=== PATIENT | female | born 1975 | race Caucasian/White ===

== ENCOUNTER 2019-08-18 10:24 | Outpatient (CLI) | payer OTHER, SELFPAY ==
--- NOTE | ~2019-08-18 | MM_ITS ---
EXAMINATION: MM scrn mansoor implant BI w camila HISTORY: Screening mammogram TECHNIQUE: Craniocaudal and mediolateral oblique 3-D tomosynthesis images with implant displacement a nd synthetic 2-D images were generated. Craniocaudal and mediolateral oblique views of the breasts wi thout implant displacement were obtained using full field digital mammography. CAD analysis was submi tted and interpreted. COMPARISON: No prior mammogram is available for comparison at this institution. BREAST PARENCHYMAL COMPOSITION: The breasts are heterogeneously dense, which may obscure small masses . FINDINGS: There are bilateral subpectoral saline implants. There is no evidence of suspicious mass, c alcification, or architectural distortion to suggest malignancy in either breast. There has been no s uspicious interval change. IMPRESSION: 1. No mammographic evidence of malignancy. 2. Recommend routine screening mammography in one year. BI-RADS Category 1: Negative Reviewed, dictated and finalized at location A. MANAGER
== END 2019-08-18 10:25 | disposition home or self-care (01) ==
LOC: ANHIMG 10:27
PROVIDERS: Visit Provider Obstetrics & Gynecology
DX: Z12.31 Encounter for screening mammogram for malignant neoplasm of breast (principal)
CPT/HCPCS: 77063; 77067

== ENCOUNTER 2021-10-21 15:03 | Outpatient (CLI) | payer BC, SELFPAY ==
[2021-10-21 19:19] LABS: Basophils Percent Auto 0.6 % (0.2-1.2); Eosinophils Absolute Auto 0.1 K/mm3 (0-0.3); Eosinophils Percent Auto 1.3 % (0-4.4); Hematocrit 41.5 % (37.0-47.0); Hemoglobin 14.1 g/dL (12.0-15.0); Immature Granulocyte Absolute 0.01 K/mm3 (0.00-0.031); Immature Granulocyte Percent A 0.2 % (0-0.5); Lymphocytes Absolute Auto 1.52 K/mm3 (0.9-3.2); Lymphocytes Percent Auto 28.1 % (18.3-44.2); Mean Corpuscular Hemoglobin 30.9 pg (26-34); Mean Corpuscular Volume 90.8 fl (80-100); Monocytes Absolute Auto 0.3 K/mm3 (0.1-0.6); Monocytes Percent Auto 6.3 % (2.6-8.5); Neutrophils Absolute Auto 3.4 K/mm3 (1.3-6.7); Neutrophils Percent Auto 63.5 % (45.5-73.1); Platelet Count Result 135 k/mm3 (150-375); Red Blood Count 4.57 M/mm3 (4.2-5.4); Red Cell Distribution Width 12.1 % (11.5-14.5); White Blood Count 5.4 K/mm3 (4.5-10.0)
[2021-10-21 19:31] LABS: Alanine Aminotransferase 9 U/L (4-35); Albumin Level 4.9 g/dL (3.5-5.1); Alkaline Phosphatase 47 U/L (38-126); Anion Gap 11 mmol/L (8-16); Aspartate Amino Transferase 20 U/L (14-36); Bilirubin,Total 0.7 mg/dL (0.2-1.3); Blood Urea Nitrogen 14 mg/dL (7-17); Calcium 9.2 mg/dL (8.4-10.2); Carbon Dioxide 20 mmol/L (22-30); Chloride 106 mmol/L (98-107); Cholesterol 208 mg/dL (0-200); Estimated Glomerular Filt Rate > 60; Glucose 97 mg/dL (65-110); HDL Direct 74 mg/dL; Potassium 4.3 mmol/L (3.4-5.0); Sodium 137 mmol/L (137-145); Triglycerides 72 mg/dL (<150)
[2021-10-21 19:42] LABS: LDL Cholesterol Direct 96 mg/dL
[2021-10-21 19:48] LABS: Vitamin D 25 Hydroxy 49.4 ng/mL
== END 2021-10-21 15:04 | disposition home or self-care (01) ==
PROVIDERS: Visit Provider Obstetrics & Gynecology
DX: Z00.00 Encounter for general adult medical examination without abnormal findings (principal)
CPT/HCPCS: 36415; 80053; 80061; 82306; 84443; 85025

== ENCOUNTER 2021-12-17 10:13 | Outpatient (CLI) | payer BC, SELFPAY ==
--- NOTE | ~2021-12-17 | MM_ITS ---
EXAMINATION: MM scrn mansoor implant BI w camila HISTORY: Screening mammogram TECHNIQUE: Craniocaudal and mediolateral oblique 3-D tomosynthesis images with implant displacement a nd synthetic 2-D images were generated. Craniocaudal and mediolateral oblique views of the breasts wi thout implant displacement were obtained using full field digital mammography. CAD analysis was submi tted and interpreted. COMPARISON: 08/18/2019 BREAST PARENCHYMAL COMPOSITION: The breasts are extremely dense, which lowers the sensitivity of mamm ography FINDINGS: There are subpectoral breast implants. There is no evidence of suspicious mass, calcificati on, or architectural distortion to suggest malignancy in either breast. There has been no suspicious interval change. IMPRESSION: 1. No mammographic evidence of malignancy. 2. Recommend routine screening mammography in one year. BI-RADS Category 1: Negative Reviewed, dictated and finalized at location A.
== END 2021-12-17 10:14 | disposition home or self-care (01) ==
LOC: ANHIMG 10:15
PROVIDERS: PCP Family Medicine; Visit Provider Obstetrics & Gynecology
DX: Z12.31 Encounter for screening mammogram for malignant neoplasm of breast (principal)
CPT/HCPCS: 77063; 77067

== ENCOUNTER 2022-12-19 00:10 | Day surgery (SDC) | payer BC, SELFPAY ==
[2022-12-09 13:15] VITALS: BMI 20.9
[2022-12-19 06:21] VITALS: BP 105/59; PULSE 93; RESP 18; TEMP 36.7; O2SAT 100; BMI 20.6
[2022-12-19] MEDS: LACTATED RINGERS 1,000 ML 150 ML IV CONT (06:31)
--- NOTE | 2022-12-19 07:23 | P.HP_ITS ---
History of Present Illness History of Present Illness Consent: Risks, benefits, and alternatives have been discussed and questions answered. Patient agrees to proceed with procedure. Chief complaint: neoplasm screening Narrative: Venita Campo is a 47 year old female Presents for screening colonoscopy. Patient's current weight appetite bowel movements are normal. Patient denies abdominal pain. She has had no bleeding. Family history is noncontributory. [facility] Surgical History Surgical History History of colposcopy Hx of breast augmentation Family History Family History Grandparent Hypertension Sibling Hypertension Patient's brother is in good health Father Family history of heart disease in male family member before age 55 Social History Social History Smoking status: Never smoker Alcohol intake: current Drinks per week: 5 Alcohol use details: DRINKS/BEERS Substance use: never Substance use type: marijuana Other substance usage details: GUMMIES AT NIGHT FOR SLEEP Lack of Transportation: No Lack of Food: Never True Current Housing: I Have Housing Concerned About Future Housing: No Difficulty Paying Gas/Electric Bills: No Difficulty Paying for Meds: No Currently Unemployed: No Education: Master's Degree or Higher Difficulty w/ Childcare or Family Care: No Living arrangements: with family Occupation/Education: retired Spiritual care concerns: No Meds Home Medications and Allergies Home Medications Medication Instructions Recorded Confirmed Type No Home Medications 12/19/22 12/19/22 History Allergies Allergy/AdvReac Type Severity Reaction Status Date / Time Sulfa (Sulfonamide Allergy Severe Hives Verified 12/19/22 06:20 Antibiotics) Vital Signs Vital Signs - 24 hr 12/19/22 06:21 Temperature 98.1 F Pulse Rate 93 Respiratory Rate 18 Blood Pressure 105/59 L Pulse Oximetry 100 Oxygen Delivery Room Air Exam Narrative: Physical exam reveals patient to be alert. Vital signs stable. HEENT exam is unremarkable. Patient is anicteric. Lungs are clear. Heart without murmur. Abdomen bowel sounds are present soft nontender with no organomegaly. Digital external rectal exam is normal. Assessment and Plan Assessment and plan (1) Encounter for screening colonoscopy: Code(s): Z12.11 - Encounter for screening for malignant neoplasm of colon Status: Acute Assessment and Plan: Patient presents today for screening colonoscopy. She appears to be at average risk for colon polyps. Further recommendations may be given after endoscopy.
--- NOTE | 2022-12-19 07:28 | P.PNAN_ITS ---
Anes - Initial Pre Proc Eval Procedure: Operation Date: 12/19/22 07:30 Proposed Procedures p Screening Colonoscopy - Denny Walter MD Date/Time: 12/19/22 07:28 Surgeon: Denny Walter MD Pre Op Diagnosis: neoplasm screening Patient Data Age: 47 Gender: F Height: 1.65 m Weight: 56.2 kg Last Vital Signs Temp 98.1 F 12/19/22 06:21 Pulse 93 12/19/22 06:21 Resp 18 12/19/22 06:21 BP 105/59 L 12/19/22 06:21 Pulse Ox 100 12/19/22 06:21 O2 Del Method Room Air 12/19/22 06:21 Allergies Allergy/AdvReac Type Severity Reaction Status Date / Time Sulfa (Sulfonamide Allergy Severe Hives Verified 12/19/22 06:20 Antibiotics) Home Medications Medication Instructions Recorded Confirmed Type No Home Medications 12/19/22 12/19/22 History Patient hx anesthesia problems: none Family hx anesthesia problems: none Results Review: All pre-operative results and documents have been reviewed as part of the pre-operative evaluation. [facility] Surgical History Surgical History History of colposcopy Hx of breast augmentation Family History Family History Grandparent Hypertension Sibling Hypertension Patient's brother is in good health Father Family history of heart disease in male family member before age 55 Social History Social History Smoking status: Never smoker Alcohol intake: current Drinks per week: 5 Alcohol use details: DRINKS/BEERS Substance use: never Substance use type: marijuana Other substance usage details: GUMMIES AT NIGHT FOR SLEEP Lack of Transportation: No Lack of Food: Never True Current Housing: I Have Housing Concerned About Future Housing: No Difficulty Paying Gas/Electric Bills: No Difficulty Paying for Meds: No Currently Unemployed: No Education: Master's Degree or Higher Difficulty w/ Childcare or Family Care: No Living arrangements: with family Occupation/Education: retired Spiritual care concerns: No Anes - Eval Final PreProcedure Day of Procedure 12/19/22 07:28 Patient weight: normal Heart: regular rate and rhythm Lungs: clear to auscultation Airway: Mallampati scale class II Neurological: alert and oriented Last oral intake: >/= 8 hours ASA classification: II Emergent: no Anesthetic plan: proceed Anesthesia type and monitoring: general GIVS and standard monitoring Results Review: All pre-operative results and documents have been reviewed as part of the pre- operative evaluation. Informed Consent: The patient's anesthetic plan and its attendant risks and benefits were discussed with the patient/family/POA. Questions were solicited and answers provided to the satisfaction of the patient/family/POA.
[2022-12-19 07:48] VITALS: BP 119/98; PULSE 73; RESP 22; O2SAT 100
[2022-12-19 07:58] VITALS: BP 105/69; PULSE 66; RESP 18; O2SAT 100
[2022-12-19 08:08] VITALS: BP 103/68; PULSE 60; RESP 16; O2SAT 100
== END 2022-12-19 08:09 | disposition home or self-care (01) ==
PROVIDERS: PCP Family Medicine; Visit Provider Internal Medicine Gastroenterology
PROC: 0DJD8ZZ Inspection of Lower Intestinal Tract, Via Natural or Artificial Opening Endoscopic (ICD-10-PCS; CPT 45378; principal; 2022-12-19 07:30)
DX: Z12.11 Encounter for screening for malignant neoplasm of colon (principal); K64.8 Other hemorrhoids; F12.90 Cannabis use, unspecified, uncomplicated
CPT/HCPCS: 45378; J7120

== ENCOUNTER 2023-01-07 10:09 | Outpatient (CLI) | payer BC, SELFPAY ==
--- NOTE | ~2023-01-07 | MM_ITS ---
EXAMINATION: MM scrn mansoor implant BI w camila HISTORY: Screening mammogram TECHNIQUE: Craniocaudal and mediolateral oblique 3-D tomosynthesis images with implant displacement a nd synthetic 2-D images were generated. Craniocaudal and mediolateral oblique views of the breasts wi thout implant displacement were obtained using full field digital mammography. CAD analysis was submi tted and interpreted. COMPARISON: 12/17/2021 BREAST PARENCHYMAL COMPOSITION: The breasts are extremely dense, which lowers the sensitivity of mamm ography. FINDINGS: There is no evidence of suspicious mass, calcification, or architectural distortion to sugg est malignancy in either breast. There has been no suspicious interval change. IMPRESSION: 1. No mammographic evidence of malignancy. 2. Recommend routine screening mammography in one year. BI-RADS Category 1: Negative Reviewed, dictated and finalized at location A.
== END 2023-01-07 10:10 | disposition home or self-care (01) ==
LOC: ANHIMG 10:10
PROVIDERS: PCP Family Medicine; Visit Provider Obstetrics & Gynecology
DX: Z12.31 Encounter for screening mammogram for malignant neoplasm of breast (principal)
CPT/HCPCS: 77063; 77067

== ENCOUNTER 2024-01-07 08:15 | Outpatient (CLI) | payer BC, SELFPAY ==
--- NOTE | ~2024-01-07 | US_ITS ---
EXAMINATION: US pelvic complete w TV INDICATION: Right adnexal fullness. Abnormal uterine bleeding. Comparison:No prior studies for comparison. TECHNIQUE: Multiple transabdominal and endovaginal sonographic images of the pelvis performed. FINDINGS: The uterus measures 8.9 x 5.5 x 4.9 cm. The endometrial complex measures 6 mm. The right ovary measures 2.3 x 1.8 x2.1 cm and the left ovary measures . There are small follicles i n each ovary. Normal doppler signal in both ovaries. There is no free fluid in the pelvis. There are no abnormal masses seen on either side. IMPRESSION: 1. Unremarkable pelvic ultrasound. Reviewed, dictated and finalized at location B.
== END 2024-01-07 08:16 ==
PROVIDERS: PCP Family Medicine; Visit Provider Obstetrics & Gynecology
DX: N94.9 Unspecified condition associated with female genital organs and menstrual cycle (principal)
CPT/HCPCS: 76830; 76856

== ENCOUNTER 2024-02-12 10:29 | Outpatient (CLI) | payer BC, SELFPAY ==
--- NOTE | ~2024-02-12 | MM_ITS ---
EXAMINATION: MM scrn mansoor implant BI w camila HISTORY: Screening mammogram TECHNIQUE: Craniocaudal and mediolateral oblique 3-D tomosynthesis images with implant displacement a nd synthetic 2-D images were generated. Craniocaudal and mediolateral oblique views of the breasts wi thout implant displacement were obtained using full field digital mammography. CAD analysis was submi tted and interpreted. COMPARISON: Comparison to multiple prior studies sequentially, with oldest reviewed study dated 12/17. BREAST PARENCHYMAL COMPOSITION: The breasts are extremely dense, which lowers the sensitivity of mamm ography. FINDINGS: There is no evidence of suspicious mass, calcification, or architectural distortion to sugg est malignancy in either breast. There has been no suspicious interval change. IMPRESSION: 1. No mammographic evidence of malignancy. 2. Recommend routine screening mammography in one year. BI-RADS Category 1: Negative Reviewed, dictated and finalized at location B.
== END 2024-02-12 10:30 | disposition home or self-care (01) ==
PROVIDERS: PCP Family Medicine; Visit Provider Obstetrics & Gynecology
DX: Z12.31 Encounter for screening mammogram for malignant neoplasm of breast (principal)
CPT/HCPCS: 77063; 77067

== ENCOUNTER 2024-02-17 00:12 | Day surgery (SDC) | payer BC, SELFPAY ==
[2024-02-09 15:36] VITALS: BMI 21.6
--- NOTE | 2024-02-09 16:08 | PC.NURSE ---
Report to the Outpatient Waiting Room, entrance under the green pavilion located off [facility], at 0830 on 02-17-24. Planned Procedure Time: 1030. Time changes happen often and if your time is changed the preop area will call you the afternoon before. - You and your visitor will be asked to self-screen and do not enter if you have any COVID symptoms. - A mask is optional within the hospital at this time. Patients may have clear liquids (water, carbonated beverages, clear teas, apple juice) until 3 hours prior to surgery with a maximum of 20 ounces. 0730 - No food from midnight until time of surgery - Infants may have breast milk until 4 hours before surgery, formula 6 hours prior to surgery. - Children will be allowed to drink immediately following surgery. If applicable, please bring a bottle or sippy cup to assist with drinking. Juice, water, soda, and popsicles are readily available. For infants on formula, please bring formula the day of surgery. Pacifiers are allowed. Take the following medications with a SIP of water the morning of surgery: None DO NOT STOP ANY OF YOUR OTHER PRESCRIPTION MEDICATIONS PRIOR TO SURGERY EXCEPT THE FOLLOWING Medications to discontinue per physician: N/A Please no make-up, nail honduran, hairspray, perfume, deodorant, or body powder the day of surgery. No jewelry (including any body piercings) or valuables the day of surgery, leave them at home. Please take a shower or bath the night before, or the morning of, surgery with an antibacterial soap. Wear comfortable, loose fitting clothing. Children are encouraged to wear pajamas. - Jewelry must be removed prior to entering the operating room. Rings and piercings that are not removed may be cut off. - The hospital will not accept responsibility for valuables. - Please leave all valuables, including medications, at home the day of surgery. If you are going home after surgery, a licensed escort vehicle driver must drive you home. - NO public transportation without another adult if you receive anesthesia. - We recommend that an adult stay with you for 24 hours following discharge. - We also recommend that you do not drive, make important decision, drink alcoholic beverages, or take any drugs that were not prescribed by your health care provider for at least 24 hours after your discharge time. For Pediatric surgeries, we recommend two adults accompany the child home. Follow any additional instructions given to you from your surgeon. If you or anyone in your household have experienced Covid symptoms in the past week, please notify your surgeon or the nurse liaison at the phone number below for possible testing. Telephone instructions given to Luiza Campo and asked if any additional questions and then verbalized understanding. Patient advised to call surgeon office or pre surgery nurse liaison [phone] if any additional questions.
--- NOTE | 2024-02-17 07:28 | PM.IMHP ---
H&P: HPI History of Present Illness Date/Time: 02/17/24 07:28 Chief Complaint: Excessive bleeding Narrative: Patient with a history of prolonged periods not satisfactorily relieved with hormonal options. Declined IUD. She opted for endometrial ablation. She had an endometrial biopsy which showed polyp and prog effect. Review of Systems Review of Systems: All systems reviewed & are unremarkable except as noted in HPI and below Cardiovascular: Cardiovascular: Reports no additional cardiovascular complaints, Denies chest pain and Denies dyspnea Respiratory: Respiratory: Reports no additional respiratory complaints and Denies dyspnea Gastrointestinal: Gastrointestinal: Reports abdominal pain, Denies change in bowel habits, Denies diarrhea, Denies nausea and Denies vomiting Genitourinary: Genitourinary: Reports pelvic pain Musculoskeletal: Musculoskeletal: Reports back pain Integumentary/Breasts: Skin/Breast: Reports system reviewed and no additional complaints, except as docu Neurologic: Reports system reviewed and no additional complaints, except as documented [facility] Surgical History Surgical History History of colposcopy Hx of breast augmentation Family History Family History Grandparent Hypertension Sibling Hypertension Patient's brother is in good health Father Family history of heart disease in male family member before age 55 Social History Social History Smoking status: Never smoker Second hand tobacco smoke exposure: No Alcohol intake: current Drinks per week: 5 Alcohol use details: socially Substance use: current Substance use type: marijuana Other substance usage details: edibles (gummies to help sleep sometimes) Lack of Transportation: No Lack of Food: Never True Current Housing: I Have Housing Concerned About Future Housing: No Difficulty Paying Gas/Electric Bills: No Difficulty Paying for Meds: No Currently Unemployed: No Education: Master's Degree or Higher Difficulty w/ Childcare or Family Care: No Living arrangements: with family Occupation/Education: retired Gender identity (if verbalized by the patient): Female Spiritual care concerns: No Meds Home Medications and Allergies Home Medications Medication Instructions Recorded Confirmed Type No Home Medications 02/09/24 02/09/24 History Allergies Allergy/AdvReac Type Severity Reaction Status Date / Time Sulfa (Sulfonamide Allergy Severe Hives Verified 02/09/24 15:31 Antibiotics) Exam Const: Orientation/consciousness: oriented to person and oriented to place HENMT: Head: normal to inspection Eyes: General: appearance normal, both eyes and all related structures Resp: Effort & Inspection: normal respiratory effort Auscultation: clear to auscultation bilaterally Cardio: Rate: regular rate Rhythm: regular rhythm GI: Inspection: normal to inspection GI Palp: No Rebound tenderness present Neuro: General: oriented to person and oriented to place Cognition (Neuro): normal cognition Extrem: General: normal to inspection Psych: Appearance: grossly normal and well kempt Assessment and Plan Assessment and plan (1) Prolonged periods: Code(s): N92.6 - Irregular menstruation, unspecified Status: Acute Assessment and Plan: She has opted for endometrial ablation. Will perform hysteroscopy and possible dilation and curettage and possible removal of lesion if present. (2) Endometrial polyp: Code(s): N84.0 - Polyp of corpus uteri Status: Acute Assessment and Plan: Plan per above.
[2024-02-17] MEDS: LACTATED RINGERS 1,000 ML 30 ML IV CONT (09:00)
--- NOTE | 2024-02-17 09:29 | P.PNAN_ITS ---
Anes - Initial Pre Proc Eval Procedure: Operation Date: 02/17/24 10:30 Proposed Procedures p Hysteroscopy, Dilatation and Curettage, Lisseth Endometrial Ablation - Bernabe Skelton MD Date/Time: 02/17/24 09:29 Surgeon: Bernabe Skelton MD Pre Op Diagnosis: irreg bleeding, contraception Patient Data Age: 48 Gender: F Height: 1.65 m Weight: 58.97 kg Allergies Allergy/AdvReac Type Severity Reaction Status Date / Time Sulfa (Sulfonamide Allergy Severe Hives Verified 02/09/24 15:31 Antibiotics) Home Medications Medication Instructions Recorded Confirmed Type No Home Medications 02/09/24 02/09/24 History Laboratory Tests 02/17/24 09:15 Plt Count Pending MPV Pending Patient hx anesthesia problems: none Family hx anesthesia problems: none Results Review: All pre-operative results and documents have been reviewed as part of the pre- operative evaluation. [facility] Surgical History Surgical History History of colposcopy Hx of breast augmentation Family History Family History Grandparent Hypertension Sibling Hypertension Patient's brother is in good health Father Family history of heart disease in male family member before age 55 Social History Social History Smoking status: Never smoker Second hand tobacco smoke exposure: No Alcohol intake: current Drinks per week: 5 Alcohol use details: socially Substance use: current Substance use type: marijuana Other substance usage details: edibles (gummies to help sleep sometimes) Lack of Transportation: No Lack of Food: Never True Current Housing: I Have Housing Concerned About Future Housing: No Difficulty Paying Gas/Electric Bills: No Difficulty Paying for Meds: No Currently Unemployed: No Education: Master's Degree or Higher Difficulty w/ Childcare or Family Care: No Living arrangements: with family Occupation/Education: retired Gender identity (if verbalized by the patient): Female Spiritual care concerns: No Anes - Eval Final PreProcedure Day of Procedure 02/17/24 09:29 Patient weight: normal Heart: regular rate and rhythm Lungs: clear to auscultation Airway: Mallampati scale class II Neurological: alert and oriented Last oral intake: >/= 8 hours ASA classification: I Emergent: no Anesthetic plan: proceed Anesthesia type and monitoring: general GIVS and standard monitoring Results Review: All pre-operative results and documents have been reviewed as part of the pre- operative evaluation. Pt very active w cardio exercise, no cp or sob. She states that she has chronically low plts (but only slightly low per pt). Plts 135 K today. Informed Consent: The patient's anesthetic plan and its attendant risks and benefits were discussed with the patient/family/POA. Questions were solicited and answers provided to the satisfaction of the patient/family/POA.
--- NOTE | 2024-02-17 09:31 | WPDHPUPDATE1 ---
History and Physical Update Update Date/Time: 02/17/24 09:31 History and Physical has been reviewed, including an updated exam of the patient. There are NO changes in the patient's condition. Risks, benefits, and alternatives have been discussed and questions answered. Patient agrees to proceed with procedure.
[2024-02-17 09:32] LABS: Mean Platelet Volume 11.2 fl (7.4-10.4); Platelet Count Result 135 k/mm3 (150-375)
[2024-02-17] MEDS: ACETAMINOPHEN 500 MG TABLET 1000 MG PO (10:01)
[2024-02-17 10:03] VITALS: BP 112/76; PULSE 80; RESP 20; TEMP 36.6; O2SAT 100
[2024-02-17] MEDS: ceFAZolin 2 GM/D5W 50 ML 2 GM/50 ML BAG IVPB (10:06)
[2024-02-17] MEDS: LIDOCAINE HCL 1% LOCAL INJ 20 ML VIAL 10 ML INFILTRATE (10:28)
[2024-02-17] MEDS: KETOROLAC 15 MG/ML VIAL (*BKC) IV PUSH (10:32)
[2024-02-17 10:42] VITALS: BP 107/70; PULSE 69; RESP 14; O2SAT 100
--- NOTE | 2024-02-17 10:47 | W.PM.PROC2 ---
Procedure Note - Detailed Date of Procedure 02/17/24 Pre-op Diagnosis prolonged irreg bleeding Post-op Diagnosis Same Procedure Performed Hysteroscopy with dilation and curettage and lisseth endometrial ablation Surgeon Bernabe Skelton MD Anesthesia MAC and Local Indications Prolonged menstrual bleeding, possible polyp Findings Uterus Sound to 9 cm cervical length 4.5 cm on hysteroscopy there were was proliferative endometrium no polyp seen. The tot performed. And then ablation performed. Description of Procedure After informed consent was obtained patient was taken to the operating room and adequate IV sedation was administered. Attention was turned to the vagina. Speculum was inserted. Single-tooth tenaculum placed on the anterior lip of the cervix. The uterus was sounded to 9 cm. The cervix was dilated to an 4 Alfaro dilator. The cervical length was 4.5. The hysteroscope was inserted into the cavity. The findings were a normal uterine cavity with proliferative endometrial tissue. The hysteroscope was removed. The Lisseth ablation instrument was inserted into the cavity. Cavity assessment was performed and confirmed intact. The ablation was enabled. After 120 seconds the Lisseth stopped. The ablation instrument was removed. The hysteroscope was inserted and there was noted to be good eschar with the cavity. The hysteroscope was removed the single-tooth tenaculum was removed hemostasis was noted at the tenaculum site with silver nitrate. Sponge count correct. The patient taken to recovery in stable condition. Estimated Blood Loss 5 Drains No Packing No Pathology Yes ( Endometrial curetting) Complications No immediate complications Condition Stable Disposition Same day [facility] Billing Surgery - Charge Forward: Surgery Billing
[2024-02-17 11:10] VITALS: BP 111/64; PULSE 62; RESP 16
[2024-02-17 11:29] VITALS: BP 113/81; PULSE 50; RESP 16
[2024-02-17 11:37] LABS: BEDSIDEPREGUCG Negative
== END 2024-02-17 11:40 | disposition home or self-care (01) ==
PROVIDERS: PCP Family Medicine; Visit Provider Obstetrics & Gynecology
PROC: 0U5B8ZZ Destruction of Endometrium, Via Natural or Artificial Opening Endoscopic (ICD-10-PCS; CPT 58563; principal; 2024-02-17 10:30)
DX: N92.6 Irregular menstruation, unspecified (principal); F12.90 Cannabis use, unspecified, uncomplicated
CPT/HCPCS: 58563; 36415; 85049; 85055; 88305; A9270; J0690; J1885; J2250; J2704; J3010; J7120

== ENCOUNTER 2025-03-23 09:52 | Outpatient (CLI) | payer BC, SELFPAY ==
--- OUTSIDE RECORDS SUMMARY | 2025-03-23 10:24 | XMS_ITS | Encounter Summary ---
Author Organization [facility] Address [address] [place] [address] Care Team Providers Care Bulb Planter Name Role Phone Unavailable Primary Care Provider Unavailabl e Encounter Details Date Type Department Care Team (Late st Contact Info) Description 04/11/2024 Lab Requisition [facility] - DermPath Lab [address] [facility], [place] [address] Adrienne Arreola DO [address] [facility] 3L [place] [address] Social History Tobacco Use Types Packs/Day Years Used Date Smoking Tobacco: Never Assessed Comments Unknown Sex and Gender Information Value Date Recorded Sex Assigned at Not on file Legal Sex Female 7:04 AM CDT Gender Identity Not on file Sexual Orientation Not on file documented as of this encounter Plan of Treatment Not on file documented as of this encounter Procedures Procedure Name Priority Date/Time Associated Diagnosis Comments DERMATOPATHOLOGY Routine 04/11/2024 10:0 5 AM CDT documented in this encounter Results * DERMATOPATHOLOGY (04/11/2024 10:05 AM CDT) Case Report Dermatopathology Report Case: [id number] Authorizing Provider: Adrienne Arreola DO Collected: 04/11/2024 10:05 AM Ordering Location: [facility] - Received: 04/11/2024 04:25 PM DermPath Lab Pathologist: Traci Gaitan MD Specimens: A) - Skin, right lateral forehead B) - Skin, right post auricular 12:39 PM CDT DERMATOPATHOLOGY LABORATORY Final Diagnosis Specimen A. 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 R/O atypia 12:39 PM CDT DERMATOPATHOLOGY LABORATORY Gross Description Specimen A: Received is one formalin filled container labeled with the patient's name and designated right lateral forehead. The specimen consists of a shave biopsy measuring 5x4x1 mm. Jar 0. Specimen B: Received is one formalin filled container labeled with the patient's name and designated right post auricular. The specimen consists of a shave biopsy measuring 2x2x1 mm. Jar 0. 12:39 PM CDT DERMATOPATHOLOGY LABORATORY Microscopic Description Specimen A. SKIN, right lateral forehead: In the dermis, there are dilated vascular spaces surrounded by widely spaced endothelial cells. Specimen B. SKIN, right post auricular: Sections show nests, cords, and strands of cytologically bland melanocytes that mature with descent into the dermis. There are areas in which the melanocytes have a neuroid appearance. 12:39 PM CDT DERMATOPATHOLOGY LABORATORY Disclaimer An external and internal positive and negative controls are appropriate for the histochemical, immunohistochemical and immunofluorescence stain(s) in this case (if any), except where stated explicitly. The performance characteristics of the stain(s) cited in this report were developed and its performance characteristic determined by the Dermatopathology Laboratory at [facility], directed by Dr. Melba Luu. These tests need not be, and therefore are not, approved by the [place] Food and Drug Administration. The tests are used for clinical purposes. Billing Codes Specimen Charges Stain Charges 97869 02182 1 1 12:39 PM CDT DERMATOPATHOLOGY LABORATORY Embedded Images 12:39 PM CDT DERMATOPATHOLOGY LABORATORY Pathology/Cytology TISSUE SPECIMEN FROM SKIN / Unknown 04/11/2024 10:05 AM CDT 04/11/2024 4:25 PM CDT Miscellaneous samples (specimen) TISSUE SPECIMEN FROM SKIN / Unknown 04/11/2024 10:05 AM CDT 04/11/2024 4:25 PM CDT us Adrienne Arreola DO LAB - PATHOLOGY/CYTOLOGY ORDERABLES Final Result DERMATOPATHOLOGY LABORATORY [facility] - Department of Dermatology [facility] Medicine [address] [place] [address], [address] [phone] documented in this encounter Visit Diagnoses Not on filedocumented in this encounter
--- OUTSIDE RECORDS SUMMARY | 2025-03-23 10:24 | XMS_ITS | Clinical Summary ---
Author Organization [facility] Address [address] [place] [address] Care Team Providers Care General Manager [employer] Name Role Phone Unavailable Primary Care Provider Unavailabl e Source Comments [facility],non-owned Affiliates and Associated Physician Practices is amultiple site organization consisting of ambulatory clinics and hospital sitesin [place], [place], [place] and [place]. This disclosure is being madepursuant to the Care Everywhere program and may not contain all information available regarding this patient. Last updated 18[facility] Social History Tobacco Use Types Packs/Day Years Used Date Smoking Tobacco: Never Assessed Comments Unknown Sex and Gender Information Value Date Recorded Sex Assigned at Not on file Legal Sex Female 7:04 AM CDT Gender Identity Not on file Sexual Orientation Not on file Plan of Treatment Health Maintenance Due Date Last Done Comments COLOGUARD (AGES 45-75) - COL ON CA SCREENING 1976 COLON MONITORING 1976 COLONOSCOPY - COLON CA SCREENING 1976 CT COLONOGRAPHY - COLON CA SCREENING 1976 Colorectal Cancer Screening 1976 FIT - COLON CA SCREENING 1976 FLEX SIG - COLON CA SCREENING 1976 LIPID TESTING 1976 MAMMOGRAM 1976 HIV SCREENING 11/27/1991 HEPATITIS C SCREENING 11/22/1994 DTAP/TDAP/TD VACCINES (1 - Tdap) 11/27/1995 HEPATITIS B VACCINE (1 of 3 - 19+ 3-dose series) 11/27/1995 PAP SMEAR 1997 DEPRESSION SCREENING 06/22/2024 COVID-19 VACCINE (1 - 2023-2 5 season) 2025 INFLUENZA VACCINE (#1) 2025 ZOSTER VACCINE (1 of 2) 2026 HIB VACCINE Aged Out No longer eligi ble based on patient's age to complete this topic HPV VACCINE Aged Out No longer eligi ble based on patient's age to complete this topic MENINGOCOCCAL (Group B) VACC INE SHARED DECISION-MAKING Aged Out No longer eligibl e based on patient's age to complete this topic MENINGOCOCCAL GROUPS A/C/Y/W VACCINE Aged Out No longer eligible b ased on patient's age to complete this topic PNEUMOCOCCAL VACCINE Aged Out No long er eligible based on patient's age to complete this topic Insurance [address] [place] [id number] [facility], [facility]
[2025-03-23 13:03] LABS: Hematocrit 45.1 % (37.0-47.0); Hemoglobin 15.0 g/dL (12.0-15.0); Immature Granulocyte Percent A 0.2 % (0-0.5); Lymphocytes Absolute Auto 1.07 K/mm3 (0.9-3.2); Mean Corpuscular HGB Conc 33.3 g/dl (32-36); Mean Corpuscular Hemoglobin 31.1 pg (26-34); Mean Corpuscular Volume 93.4 fl (80-100); Nucleated Red Blood Cells Absolute Auto 0.000 K/mm3 (0.0-0.012); Nucleated Red Blood Cells Perc 0.0 % (0.0-0.2); Platelet Count Result 147 k/mm3 (150-375); Red Blood Count 4.83 M/mm3 (4.2-5.4); White Blood Count 4.6 K/mm3 (4.5-10.0)
[2025-03-23 13:11] LABS: Alanine Aminotransferase 11 U/L (6-35); Albumin Level 4.7 g/dL (3.5-5.1); Alkaline Phosphatase 55 U/L (38-126); Anion Gap 10 mmol/L (4-12); Aspartate Amino Transferase 30 U/L (14-36); Bilirubin,Total 1.2 mg/dL (0.2-1.3); Blood Urea Nitrogen 13 mg/dL (7-17); Calcium 9.5 mg/dL (8.4-10.2); Carbon Dioxide 25 mmol/L (22-30); Chloride 102 mmol/L (98-107); Cholesterol 205 mg/dL (0-200); Estimated Glomerular Filt Rate > 60; Glucose 96 mg/dL (65-110); HDL Direct 79 mg/dL; Potassium 4.6 mmol/L (3.4-5.0); Sodium 137 mmol/L (137-145); Total Protein 7.9 g/dL (6.3-8.2); Triglycerides 52 mg/dL (<150)
[2025-03-23 13:41] LABS: Free T4 Free Thyroxine 1.15 ng/dL (0.78-2.19)
[2025-03-23 13:47] LABS: Thyroid Stimulating Hormone 1.870 uIU/mL (0.465-4.680)
[2025-03-23 15:56] LABS: Hemoglobin A1C 4.9 % (<5.7)
== END 2025-03-23 09:53 | disposition home or self-care (01) ==
LOC: ANHGOSHLAB 09:53
PROVIDERS: PCP Family Medicine; Visit Provider Family Medicine
DX: Z00.00 Encounter for general adult medical examination without abnormal findings (principal); D69.6 Thrombocytopenia, unspecified; E55.9 Vitamin D deficiency, unspecified; E78.5 Hyperlipidemia, unspecified; R53.83 Other fatigue; R73.9 Hyperglycemia, unspecified
CPT/HCPCS: 36415; 80053; 80061; 82306; 83036; 84439; 84443; 85025

== ENCOUNTER 2025-03-30 13:43 | Outpatient (CLI) | payer BC, SELFPAY ==
--- NOTE | ~2025-03-30 | MM_ITS ---
EXAMINATION: screening [facility] BI w camila INDICATION: Asymptomatic, referred for screening mammogram COMPARISON: 02/12/2024 through 08/18/2019 TECHNIQUE: Digital Breast Tomosynthesis CC, MLO, and implant displaced CC and MLO views of Both breasts were obtained with computer-aided detection to assist in interpretation of the study. FINDINGS: The breasts are heterogeneously dense, which may obscure small masses. Bilateral breast Retropectoral Saline implants in place appears intact. There is a group of microcalcifications in the subareolar left breast at anterior third. No other focal dominant mass, architectural distortion, or suspicious microcalcifications are identified. IMPRESSION: 1. LEFT breast incompletely characterized group of calcifications. 2. No evidence of malignancy in the RIGHT breast. 3. Both breasts Retropectoral Saline implants appears intact. RECOMMENDATION: Diagnostic LEFT mammography with appropriate magnification views. BI-RADS Category 0: Incomplete: Needs additional imaging evaluation. Reviewed, dictated and finalized at location B.
== END 2025-03-30 13:44 | disposition home or self-care (01) ==
LOC: ANHFOHIMG 13:46
PROVIDERS: PCP Family Medicine; Visit Provider Obstetrics & Gynecology
DX: Z12.31 Encounter for screening mammogram for malignant neoplasm of breast (principal); R92.8 Other abnormal and inconclusive findings on diagnostic imaging of breast
CPT/HCPCS: 77063; 77067

== ENCOUNTER 2025-05-10 10:38 | Outpatient (CLI) | payer BC, SELFPAY ==
--- NOTE | ~2025-05-10 | MM_ITS ---
EXAMINATION: MM diagnostic [facility] LT w camila INDICATION: 49-year old female; BI-RADS 0, callback from screening to evaluate calcifications in the retroareolar location. COMPARISON: 03/30/2025 through 08/18/2019 TECHNIQUE: Digital breast magnification CCID and MLID views of LEFT breast were obtained. FINDINGS: The breasts are heterogeneously dense, which may obscure small masses. A new group of coarse microcalcifications that spans 0.3 cm seen in the retroareolar at anterior depth LEFT breast correlates to the area of concern. IMPRESSION: Suspicious LEFT breast new group of microcalcifications in the retroareolar location. Biopsy is recommended. RECOMMENDATION: Stereotactic biopsy of retroareolar LEFT breast calcifications. BI-RADS 4, SUSPICIOUS Reviewed, dictated and finalized at location B. STANCE SPECIALIST IMPRESSION: Suspicious LEFT breast new group of microcalcifications in the retr oareolar location. Biopsy is recommended. RECOMMENDATION: Stereotactic biopsy of retroareolar LEFT breast calcifications. BI-RADS 4, SUSPICIOUS
--- OUTSIDE RECORDS SUMMARY | 2025-05-10 15:24 | XMS_ITS | Encounter Summary ---
Author Organization [facility] Address [address] [facility] [place] [address] Care Team Providers Care Hide Washer Name Role Phone Unavailable Primary Care Provider Unavailabl e Encounter Details Date Type Department Care Team (Late st Contact Info) Description 04/11/2024 Lab Requisition [facility] - DermPath Lab [address] [facility], [place] [address] Adrienne Arreola DO [address] [facility] 3L [place] [address] Social History Tobacco Use Types Packs/Day Years [...] AM CDT) Case Report Dermatopathology Report Case: [id number] Authorizing Provider: Adrienne Arreola DO Collected: 04/11/2024 10:05 AM Ordering Location: [facility] - Received: 04/11/2024 04:25 PM [...] characteristic determined by the Dermatopathology Laboratory at [facility], directed by Dr. Melba Luu. These tests need not be, and therefore are not, approved by the [place] Food and Drug Administration. The tests are used for clinical purposes. Billing Codes Specimen Charges Stain Charges 57681 44225 1 1 12:39 PM CDT DERMATOPATHOLOGY LABORATORY Embedded Images 12:39 PM CDT DERMATOPATHOLOGY LABORATORY Pathology/Cytology TISSUE SPECIMEN FROM SKIN / Unknown 04/11/2024 10:05 AM CDT 04/11/2024 4:25 PM CDT Miscellaneous samples (specimen) TISSUE SPECIMEN FROM SKIN / Unknown 04/11/2024 10:05 AM CDT 04/11/2024 4:25 PM CDT us Adrienne Arreola DO LAB - PATHOLOGY/CYTOLOGY ORDERABLES Final Result DERMATOPATHOLOGY LABORATORY [facility] - Department of Dermatology [facility] Medicine [address] [place] [address], [address]rd Floor [address] [phone] documented in this encounter Visit Diagnoses Not on filedocumented in this encounter
--- OUTSIDE RECORDS SUMMARY | 2025-05-10 15:25 | XMS_ITS | Encounter Summary ---
Author Organization [facility] Address [address] [facility] [place] [address] Care Team Providers Care Buildings And Grounds Superintendent Name Role Phone Unavailable Primary Care Provider Unavailabl e Encounter Details Date Type Department Care Team (Late st Contact Info) Description 04/17/2025 Lab Requisition [facility] - DermPath Lab [address] [facility], [place] [address] Adrienne Arreola DO [address] [facility] 3L [place] [address] Neoplasm of uncertain behavior of skin; Other pruritus; Other specified erythematous conditions Social History Tobacco Use Types Packs/Day Years [...] Priority Date/Time Associated Diagnosis Comments DERMATOPATHOLOGY Routine 04/17/2025 9:00 AM CDT Neoplasm of uncertain behavior of skin Other pruritus Other specified erythematous conditions documented in this encounter Results * DERMATOPATHOLOGY (04/17/2025 9:00 AM CDT) Case Report Dermatopathology Report Case: [id number] Authorizing Provider: Adrienne Arreola DO Collected: 04/17/2025 09:00 AM Ordering Location: [facility] - Received: 04/17/2025 01:11 PM DermPath Lab Pathologist: Liv Fishman MD Specimens: A) - Skin, left superior forehead B) - Skin, left superior upper back 3:27 PM CDT DERMATOPATHOLOGY LABORATORY Final Diagnosis Specimen A. 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 SKIN, left superior upper back: COMPOUND NEVUS WITH CONGENITAL FEATURES (D22.5) (see microscopic description and comment) 3:27 PM T DERMATOPATHOLOGY LABORATORY at 1527 CDT Clinical History A. Neoplasm of uncertain behavior vs. Irritated Nevus B. Neoplasm of uncertain behavior vs. BCC vs. R/O Atypia 3:27 PM CDT DERMATOPATHOLOGY LABORATORY Gross Description Specimen A: Received is one formalin filled container labeled with the patient's name and designated left superior forehead. The specimen consists of a shave biopsy measuring 5x4x1 mm. Jar 0. Specimen B: Received is one formalin filled container labeled with the patient's name and designated left superior upper back. The specimen consists of a shave biopsy measuring 5x4x1 mm. Jar 0. 3:27 PM T DERMATOPATHOLOGY LABORATORY Microscopic Description Specimen A. SKIN, left superior forehead: There are nests of melanocytes at the dermal-epidermal junction and within the dermis. Specimen B. SKIN, left superior upper back: There are nests of melanocytes at the dermal-epidermal junction and within the dermis. Some melanocytes are splayed between collagen bundles and are localized around adnexal structures. This lesion is present at the margin of the specimen. COMMENT: If this specimen is sampled from a larger lesion, these findings may not be sales representative cash registers of the entire lesion. Clinicopathologic correlation is recommended. 3:27 PM T DERMATOPATHOLOGY LABORATORY Disclaimer An external and internal positive and negative controls are appropriate for the histochemical, immunohistochemical and immunofluorescence stain(s) in this case (if any), except where stated explicitly. The performance characteristics of the stain(s) cited in this report were developed and its performance characteristic determined by the Dermatopathology Laboratory at [facility], directed by Dr. Melba Luu. These tests need not be, and therefore are not, approved by the [place] Food and Drug Administration. The tests are used for clinical purposes. Billing Codes Specimen Charges Stain Charges 37967 15667 1 1 3:27 PM CDT DERMATOPATHOLOGY LABORATORY Embedded Images 3:27 PM CDT DERMATOPATHOLOGY LABORATORY Pathology/Cytology TISSUE SPECIMEN FROM SKIN / Unknown 04/17/2025 9:00 AM CDT 04/17/2025 1:11 PM CDT Miscellaneous samples (specimen) TISSUE SPECIMEN FROM SKIN / Unknown 04/17/2025 9:00 AM CDT 04/17/2025 1:11 PM CDT us Adrienne Arreola DO LAB - PATHOLOGY/CYTOLOGY ORDERABLES Final Result DERMATOPATHOLOGY LABORATORY [facility] - Department of Dermatology [facility] Medicine [address] [place] [address], [address] [phone] documented in this encounter Visit Diagnoses Diagnosis Neoplasm of uncertain behavior of skin Other pruritus Other specified erythematous conditions documented in this encounter
--- OUTSIDE RECORDS SUMMARY | 2025-05-10 15:25 | XMS_ITS | Clinical Summary ---
Author Organization [facility] Address [address] [facility] [place] [address] Care Team Providers Care Store Stock Help Name Role Phone Unavailable Primary Care Provider Unavailabl e Source Comments [facility],non-owned Affiliates and Associated Physician Practices is amultiple site organization consisting of ambulatory clinics and hospital sitesin [place], [place], [place] and [place]. This disclosure is being madepursuant to the Care Everywhere program and may not contain all information available regarding this patient. Last updated 18.[facility] Encounters Date Type Department Care Team Description 04/17/2025 Lab Requisition [facility] - DermPath Lab [address] [facility], [place] [address] Adrienne Arreola DO Neoplasm of uncertain behavior of skin; Other pruritus; Other specified erythematous conditions from Last 3 Months Social History Tobacco Use Types Packs/Day Years [...] of 3 - 19+ 3-dose series) 11/27/1995 Cervical Cancer Screening 1997 PAP SMEAR 1997 PAP with HPV 2006 DEPRESSION SCREENING 06/22/2024 COVID-19 VACCINE (2024-2 6 season) 2025 INFLUENZA VACCINE (#1) 2025 ZOSTER [...] on patient's age to complete this topic Procedures Procedure Name Priority Date/Time Associated Diagnosis Comments DERMATOPATHOLOGY Routine 04/17/2025 9:00 AM CDT Neoplasm of uncertain behavior of skin Other pruritus Other specified erythematous conditions from Last 3 Months Results * DERMATOPATHOLOGY (04/17/2025 9:00 AM CDT) Case Report Dermatopathology Report Case: [id number] Authorizing Provider: Adrienne Arreola DO Collected: 04/17/2025 09:00 AM Ordering Location: [facility] - Received: 04/17/2025 01:11 PM [...] (see microscopic description and comment) 3:27 PM CDT DERMATOPATHOLOGY LABORATORY at 1527 CDT Clinical History A. Neoplasm of uncertain behavior vs. Irritated Nevus B. Neoplasm of uncertain behavior vs. BCC vs. R/O Atypia 3:27 PM T DERMATOPATHOLOGY LABORATORY Gross Description Specimen A: Received [...] larger lesion, these findings may not be premium service representative of the entire lesion. Clinicopathologic correlation is recommended. 3:27 PM T DERMATOPATHOLOGY LABORATORY Disclaimer An external and internal positive and negative controls are appropriate for the histochemical, immunohistochemical and immunofluorescence stain(s) in this case (if any), except where stated explicitly. The performance characteristics of the stain(s) cited in this report were developed and its performance characteristic determined by the Dermatopathology Laboratory at [facility], directed by Dr. Melba Luu. These tests need not be, and therefore are not, approved by the [place] Food and Drug Administration. The tests are used for clinical purposes. Billing Codes Specimen Charges Stain Charges 29353 [id number] 1 1 3:27 PM CDT DERMATOPATHOLOGY LABORATORY Embedded Images 3:27 PM CDT DERMATOPATHOLOGY LABORATORY Pathology/Cytology TISSUE SPECIMEN FROM SKIN / Unknown 04/17/2025 9:00 AM CDT 04/17/2025 1:11 PM CDT Miscellaneous samples (specimen) TISSUE SPECIMEN FROM SKIN / Unknown 04/17/2025 9:00 AM CDT 04/17/2025 1:11 PM CDT Adrienne Arreola DO LAB - PATHOLOGY/CYTOLOGY ORDERABLES Final Result DERMATOPATHOLOGY LABORATORY [facility] - Department of Dermatology [facility] [address] [facility], [address]rd [place] [address], [facility] [phone] from Last 3 Months Insurance [facility]
== END 2025-05-10 10:39 | disposition home or self-care (01) ==
LOC: ANHFOHIMG 10:39
PROVIDERS: PCP Family Medicine; Visit Provider Nurse Practitioner Obstetrics & Gynecology
DX: R92.0 Mammographic microcalcification found on diagnostic imaging of breast (principal); R92.8 Other abnormal and inconclusive findings on diagnostic imaging of breast
CPT/HCPCS: 77061; 77065; G0279